=== PATIENT | male | born 1985 ===

== ENCOUNTER 2018-07-09 11:21 | Emergency (ER) | payer OTHER ==
[~2018-07-09] VITALS: Ht 167.6 cm; Wt 72.6 kg
== END 2018-07-09 13:07 | disposition home or self-care (01) ==
LOC: ER 11:21
DX: M79.641 Pain in right hand (principal)
CPT/HCPCS: 29125; 73130; 99283-25

== ENCOUNTER 2018-07-13 16:44 | Emergency (ER) | payer OTHER ==
[~2018-07-13] VITALS: Ht 167.6 cm; Wt 72.6 kg
[2018-07-13] MEDS ORDERED: HYDR1TAB94 PO (17:38)
== END 2018-07-13 17:46 | disposition home or self-care (01) ==
LOC: ER 16:44
DX: S61.012A Laceration without foreign body of left thumb without damage to nail, initial encounter (principal); Z88.5 Allergy status to narcotic agent; F17.200 Nicotine dependence, unspecified, uncomplicated; W26.8XXA Contact with other sharp object(s), not elsewhere classified, initial encounter
CPT/HCPCS: 12032; 90471; 90714; 99282-25

== ENCOUNTER 2018-07-19 16:30 | Emergency (ER) | payer OTHER ==
[~2018-07-19] VITALS: Ht 167.6 cm; Wt 77.1 kg
[~2018-07-19 16:30] MED LIST: HYDR1TAB94 PO
[2018-07-19] MEDS ORDERED: IBUP800 PO (16:49)
== END 2018-07-19 16:47 | disposition home or self-care (01) ==
LOC: ER 16:30
DX: K02.9 Dental caries, unspecified (principal); F17.200 Nicotine dependence, unspecified, uncomplicated; Z88.5 Allergy status to narcotic agent
CPT/HCPCS: 99282